=== PATIENT | male | born 1960 | race Caucasian/White ===

== ENCOUNTER → 2017-05-19 08:56 | Outpatient (CLI) | payer BC ==
--- NOTE | 2017-05-31 09:15 | EC ---
PATIENT:JADIEL HOOKS DATE OF SERVICE: 05/19/17 SEX: M MEDICAL RECORD: [id number] DATE OF : 62 LOCATION:[facility] AGE OF PATIENT: 56 ADMISSION DATE: 05/19/17 REFERRING PHYSICIAN: INTERPRETING PHYSICIAN: IVETH MEIER MD ECHOCARDIOGRAM REPORT ECHO CHARGES 4 ECHO COMPLETE CLINICAL DIAGNOSIS: HTN ECHOCARDIOGRAPHIC MEASUREMENTS (adult normal given) AC root (d.<3.7cm) 3.5 cm LV Septum d (<1.2 cm> 1.2 cm Valve Excursion 2.3 cm LV Septum (systole) 1.8 cm Left Atria (s.<4.0cm> 4.4 cm LVPW d(<1.2cm) 1.0 cm RV (d.<2.3cm) 2.3 cm LVPW (sytole) 2.0 cm LV diastole(<5.6CM) 5.6 cm MV E-F(>70mm/sec) cm LV systole 2.7 cm LVOT Diameter 1.9 cm MV exc.(>10mm) cm Est.ejection fraction (50-75%) % Pericardial Effusion N DOPPLER: LVIT cm/sec A 54.0 cm/sec E 80.0 cm/sec LA cm/sec RVSP 27.4 mmHg LVOT 101 cm/sec AOP1/2T m/s Asc. 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 Meier TAPE# PACS DATE OF SERVICE: 05/19/2017 PROCEDURE: Transthoracic echocardiogram. FINDINGS: 1. Left ventricle shows normal size, normal function, ejection fraction of 60% to 65%. Inflow characteristics are normal. 2. The mitral valve is grossly normal. 3. The right ventricle is normal size, normal function. 4. The left atrium is mildly dilated. ECHOCARDIOGRAM REPORT [id number] JADIEL HOOKS 5. Aortic valve is normal structure, normal function. 6. Tricuspid valve is normal structure, normal function with trace tricuspid regurgitation. Right ventricular systolic pressures are normal. 7. There is no pericardial effusion. 8. The pulmonic valve is normal. 9. Right atrium is mildly dilated. 10. IVC was not well visualized. CONCLUSIONS: The patient has normal echocardiogram with mild dilatation of the left atrium. TRANSINT:[id number] Voice Confirmation ID: [id number] DOCUMENT ID: [id number] IVETH MEIER MD at 0915 CC: [id number] DICTATION DATE: 05/20/17 0836 HAT BRUSHER MACHINE: 05/20/17 1044 DEP CLI 05/19/17 [id number] [place] [address]
== END | disposition home or self-care (01) ==
LOC: D.ECHO 05-18 10:35
DX: I10 Essential (primary) hypertension (principal); E78.2 Mixed hyperlipidemia